=== PATIENT | female | born 1965 | race African-American/Black ===

== ENCOUNTER 2020-01-02 10:13 | Emergency (ER) | payer OTHER ==
[~2020-01-02] VITALS: Ht 152.4 cm; Wt 128.4 kg
[2020-01-02 11:22] LABS: ABSOLUTE NEUTROPHILS 7.1 thou/uL (1.4-8.2); BASOPHILS 0.8 % (0.0-2.0); EOSINOPHILS 0.1 % (0.0-3.0); HEMATOCRIT 41.7 % (37.0-47.0); HEMOGLOBIN 13.6 gm/dL (12.0-15.0); LYMPHOCYTES 15.3 % (24.0-44.0); MCH 29.2 pg (26.0-34.0); MCHC 32.7 g/dL (28.0-37.0); MCV 89.3 fL (80.0-100.0); MONOCYTES 3.9 % (1.0-8.0); PLATELET COUNT 292 thou/uL (150-400); POLYS 79.9 % (36.0-66.0); RBC 4.67 mil/uL (4.20-5.00); RDW 15.2 % (10.5-14.5); WBC 8.9 thou/uL (4.0-11.0)
[2020-01-02 11:32] LABS: CREATININE 0.9 mg/dL (0.6-1.0); POTASSIUM 4.1 mmol/L (3.5-5.1)
[2020-01-02 11:38] LABS: ALBUMIN 3.8 g/dL (3.4-5.0); DIRECT BILIRUBIN 0.3 mg/dL (<0.1-0.2); TOTAL BILIRUBIN 0.4 mg/dL (<0.1-1.0); TOTAL PROTEIN 7.9 g/dL (6.4-8.2)
[2020-01-02 12:06] LABS: URINE BILIRUBIN NEGATIVE (Negative); URINE BLOOD TRACE (Negative); URINE CLARITY CLEAR; URINE COLOR YELLOW; URINE GLUCOSE-RANDOM* NEGATIVE (Negative); URINE KETONES NEGATIVE (Negative); URINE LEUKOCYTES-REFLEX NEGATIVE (Negative); URINE NITRITE-REFLEX NEGATIVE (Negative); URINE PROTEIN (DIPSTICK) NEGATIVE (Negative); URINE SPECIFIC GRAVITY <= 1.005 (1.005-1.035); URINE UROBILINOGEN 0.2 E.U./dl (0.2-1.0)
[2020-01-02] MEDS ORDERED: METHOCARBAMOL750 MG PO (12:30)
[2020-01-02] MEDS ORDERED: CYCLOBENZAPRINE10 MG PO (12:30)
[2020-01-02] MEDS ORDERED: PHENERGAN 25 MG25 M1 PO (12:30)
[2020-01-02] MEDS ORDERED: GABAPENTIN 100100 MG PO (12:31)
[2020-01-02] MEDS ORDERED: TOPIRAMATE50 MG PO (12:31)
[2020-01-02] MEDS ORDERED: LORAZEPAM 0.50.5 MG PO (12:31)
[2020-01-02] MEDS ORDERED: CELEXA 20 MG TA20 MG PO (12:32)
[2020-01-02] MEDS ORDERED: MEDROL DOSPAK21 TA1 PO (12:32)
[2020-01-02] MEDS ORDERED: NORCO 5-325 TA1 EAC1 PO (13:01)
[2020-01-02] MEDS ORDERED: CYCLOBENZAPRINE5 MG PO (13:01)
[2020-01-02 13:14] VITALS: BP 108/66
== END 2020-01-02 13:21 | disposition home or self-care (01) ==
LOC: ER 10:13
PROVIDERS: Emergency Medicine
DX: M54.5 Low back pain (principal); R10.32 Left lower quadrant pain; E66.01 Morbid (severe) obesity due to excess calories; K21.9 Gastro-esophageal reflux disease without esophagitis; M19.90 Unspecified osteoarthritis, unspecified site; F17.210 Nicotine dependence, cigarettes, uncomplicated; Z68.43 Body mass index [BMI] 50.0-59.9, adult

== ENCOUNTER → 2020-07-04 | Outpatient (CLI) | payer OTHER ==
[~2020-07-04] MED LIST: CELEXA 20 MG TA20 MG PO; CYCLOBENZAPRINE10 MG PO; CYCLOBENZAPRINE5 MG PO; GABAPENTIN 100100 MG PO; LORAZEPAM 0.50.5 MG PO; MEDROL DOSPAK21 TA1 PO; METHOCARBAMOL750 MG PO; NORCO 5-325 TA1 EAC1 PO; PHENERGAN 25 MG25 M1 PO; TOPIRAMATE50 MG PO
== END ==
LOC: ULTRA 14:44
PROVIDERS: ATTEND Nurse Practitioner
DX: M79.89 Other specified soft tissue disorders (principal)